=== PATIENT | male | born 1985 | race Two or more races ===

== ENCOUNTER 2025-05-11 09:45 | Day surgery (SDC) | payer BC, OTHER, SELFPAY ==
[2025-05-10 06:56] VITALS: BMI 27.3
--- NOTE | 2025-05-10 07:09 | EKG_ITS ---
[facility] Test Date: 2025-05-10 Pat Name: ROSY CREWS Department: Room: - Gender: Male Associate Professor Of History: JOSHUA : 1985 Requested By: Jg Booth Order Number: [id number] Reading MD: Jg Booth Measurements Intervals [place] Rate: 88 P: 56 ID: [id number] QRS: -19 QRSD: 101 T: 60 QT: 341 QTc: 414 Interpretive Statements SINUS RHYTHM S1-S2-S3 PATTERN, CONSISTENT WITH PULMONARY DISEASE, RVH, OR NORMAL VARIANT No previous ECG available for comparison /[id number]
[2025-05-10 08:26] LABS: Basophils # (Auto) 0.1 Thou/mm3 (0.0-0.2); Basophils % (Auto) 1 % (0-2.5); Eosinophils # (Auto) 0.1 Thou/mm3 (0.0-0.5); Eosinophils % (Auto) 1 % (0-10); Hematocrit 45.3 % (41.0-53.0); Hemoglobin 16.5 g/dL (13.5-16.0); Immature Granulocytes Auto 0.03 Thou/mm3 (0.00-0.00); Lymphocytes # (Auto) 1.4 Thou/mm3 (1.0-4.8); Lymphocytes % (Auto) 25 % (10-50); Mean Corpuscular HGB Conc 36.4 g/dl (31.0-37.0); Mean Corpuscular Hemoglobin 32.4 pg (25.0-35.0); Mean Corpuscular Volume 89 fL (80-100); Monocytes # (Auto) 0.7 Thou/mm3 (0.0-0.8); Monocytes % (Auto) 12 % (0-12); Neutrophils # (Auto) 3.6 Thou/mm3 (1.8-7.7); Neutrophils % (Auto) 61 % (37-80); Nucleated Red Blood Cell # 0.00 Thou/mm3 (0.00-0.00); Nucleated Red Blood Cell % 0 /100 WBC (0); Platelet Count 93 Thou/mm3 (140-440); RDW Standard Deviation 38.4 fL (35.1-43.9); Red Blood Count 5.09 Miln/mm3 (4.50-5.90); White Blood Count 5.8 Thou/mm3 (3.8-10.6)
[2025-05-10 08:41] LABS: Alanine Aminotransferase 113 U/L (10-49); Albumin, Serum 4.9 gm/dL (3.5-5.0); Albumin/Globulin Ratio 1.4 (1.2-2.2); Alkaline Phosphatase 81 U/L (46-116); Anion Gap 13 (7-16); Aspartate Amino Transferase 123 U/L (0-34); BUN/Creatinine Ratio 10 Ratio (12-20); Bilirubin,Total 2.6 mg/dL (0.3-1.2); Blood Urea Nitrogen 7 mg/dL (9-23); Calcium 10.0 mg/dL (8.3-10.6); Calcium (Corrected) 10.0 mg/dL (8.5-10.1); Carbon Dioxide 27.2 mMol/L (20.0-31.0); Chloride 94 mMol/L (98-107); Creatinine (Component) 0.7 mg/dL (0.6-1.3); Estimated Creatinine Clearance 141.7 mL/min (>60); Globulin 3.6 gm/dL (2.3-3.5); Glucose 215 mg/dL (74-106); Osmolality,Calculated 272 (275-295); Potassium 4.1 mMol/L (3.4-5.1); Sodium 134 mMol/L (136-145); Total Protein 8.5 gm/dL (5.7-8.2); eGFR > 60 See Note
[2025-05-10 09:01] LABS: INR 1.3 (0.9-1.3); Partial Thromboplastin Time 30.2 Seconds (22.0-36.0); Prothrombin Time 13.8 Seconds (9.0-12.2)
--- NOTE | 2025-05-10 15:08 | SUR.PREOP ---
Labs reviewed with Dr Booth and Dr Mcmullen.
[2025-05-11] VITALS (7 sets, daily range): BP systolic 113–148; BP diastolic 81–97; PULSE 68–98; RESP 16–20; TEMP 36.3–36.6; O2SAT 96–100; BMI 27.1
--- NOTE | 2025-05-11 10:28 | SUR.PREOP ---
Patient expressed gratitude for prayer before his procedure.
--- NOTE | 2025-05-11 12:27 | SUR.PHASEI ---
pt received from OR in recovery bay 2. pt asleep but responds to voice, breathing unlabored on 8l oxymask. v/s stable. pt dressing to abd cdi. report received from Nile GUNTER and Joseph LUNA.
--- NOTE | 2025-05-11 12:42 | SUR.PHASEI ---
pt awake, alert, able to follow commands, breathing unlabored, dressing to abdomen clean, dry, and intact, pt tolerating oral fluids without difficulty swallowing or n/v, pt denies pain, report from Eddie LUNA
--- NOTE | 2025-05-11 12:47 | PD.SUROPNT ---
Date of Procedure 05/11/25 Pre Op Diagnosis Symptomatic ventral hernia in the epigastric region Post Op Diagnosis Same Procedure Repair of the symptomatic ventral hernia with primary closure and reinforcement with 1 x 2 inch Marlex mesh plain Findings Patient is found to have a small defect measuring less than 2 cm in the midline. The omentum had lots of vein probably from portal hypertension Procedure Description After the patient was brought to the operating room due to close is given. Abdomen was prepped with ChloraPrep solution draped in a sterile manner. Then incision was made few inches above the umbilicus in a vertical fashion. Subcutaneous tissue was reached and I could not clearly define the fascia but the defect was obvious. This barely admitted my index finger. I dissected out the defect and found out that it contained some omentum but this omentum was having huge dilated veins which bled. They were ligated with 2 silk ties. Then I explored the surrounding tissues and the patient seems to have had bleeding from the veins. They were all ligated and they cleared the fascia. I closed the wound primarily with interrupted 2 Prolene and I then cleaned the fascia and placed 1 x 2 Marlex mesh plain mesh. I attached this to the fascia with interrupted 2-0 Prolene. Then the subcutaneous tissue was closed in 2 layers using 3-0 chromic and 3-0 plain with an interrupted sutures. Then injected local anesthesia and the skin was closed with 4-0 Monocryl subcuticular stitch. Dressing was applied with Adaptic and 4 x 4 and patient tolerated procedure well Anesthesia GETA Implants 1 x 2 Marlex mesh plain Pathology / specimen None Estimated Blood Loss 25 Surgeon Leroy Victor MD Surgical Staff Operation Date: 05/11/25 12:00 Case Staff Anesthesiologist: Juan Bates RISK CONTROL CONSULTANT: Memo Marte Jr, RN First Assistant: Cain Mishra
--- NOTE | 2025-05-11 13:18 | SUR.PHASEII ---
pt awake, alert, able to follow commands, breathing unlabored, dressing to abdomen clean, dry, and intact, discharge instructions given with spouse present, all questions answered, pt able to dress self and ambulate with steady gait to wheelchair, pt discharged via wheelchair with all belongings and copies of discharge paperwork.
== END 2025-05-11 13:18 | disposition home or self-care (01) ==
PROVIDERS: PCP Nurse Practitioner Family; Referring Provider Surgery; Visit Provider Surgery
PROC: (CPT 49591; principal; 2025-05-11 11:45)
DX: K43.9 Ventral hernia without obstruction or gangrene (principal); Z01.810 Encounter for preprocedural cardiovascular examination
CPT/HCPCS: 49591; 36415; 80053; 85025; 85610; 85730; 93005; A4217; A4649; C1781; J0131; J1100; J1885; J2250; J2405; J2704; J3010; J3490; A9270